=== PATIENT | female | born 1980 | race Caucasian/White ===

== ENCOUNTER 2024-10-13 18:37 | Emergency (ER) | payer MEDICARE, MEDICAID ==
[~2024-10-13] VITALS: Ht 165.1 cm; Wt 55.5 kg
[~2024-10-13 18:37] MED LIST: CLON1TAB12 PO; FLUO-413 PO; FLUO40CA49 PO; HYDR20TA24 PO; LEVO25TA7 PO; LITHTAB PO; SERT-422 PO; THYR60TA PO; THYR90TA12 PO; ZIPR80CA9 PO
[2024-10-13 19:47] LABS: BASOPHILS % 0.3 % (0.0-2.0); EOSINOPHILS % 0.6 % (0.0-5.0); HEMATOCRIT. 30.2 % (36.0-48.0); HEMOGLOBIN. 10.7 g/dL (12.0-16.0); LYMPHOCYTES % 37.2 % (20.0-50.0); MEAN CORPUSCULAR HEMOGLOBIN 31.8 pg (28.0-32.0); MEAN CORPUSCULAR HGB CONC 35.5 g/dL (31.0-37.0); MEAN CORPUSCULAR VOLUME 89.6 fL (81.0-99.0); NEUTROPHILS % 55.9 % (40.0-76.0); PLATELET 286 x1000/uL (130-400); RED BLOOD CELL COUNT 3.37 mill/uL (4.2-5.4); RED CELL DISTRIBUTION WIDTH 13.5 % (11.6-14.6); WHITE BLOOD COUNT 5.1 x1000/uL (4.5-11.0)
[2024-10-13 19:54] LABS: CHLORIDE 93 mEq/L (98-107); POTASSIUM 3.1 mEq/L (3.5-5.1); SODIUM 130 mEq/L (136-145)
[2024-10-13 19:55] LABS: CALCIUM 9.2 mg/dL (8.7-10.4); CARBON DIOXIDE 28 mEq/L (21-32)
[2024-10-13 20:00] LABS: CREATININE 0.8 mg/dL (0.6-1.0); GLUCOSE 89 mg/dL (70-105); UREA NITROGEN BLOOD 7 mg/dL (9-23)
[2024-10-13] MEDS: POTASSIUM CHLORIDE 20MEQ/PACKET PO ONE (21:22)
[2024-10-13] MEDS: SODIUM CHLORIDE 0.9% 1,000 ML IV ONE (21:23)
[2024-10-13 21:28] LABS: CLARITY URINE CLEAR (CLEAR); COLOR URINE YELLOW (YELLOW); GLUCOSE URINE NEGATIVE (NEGATIVE); KETONES URINE NEGATIVE (NEGATIVE); LEUKOCYTE ESTERASE URINE TRACE (NEGATIVE); NITRITE URINE NEGATIVE (NEGATIVE); OCCULT BLOOD URINE NEGATIVE (NEGATIVE); PROTEIN URINE NEGATIVE (NEGATIVE); SPECIFIC GRAVITY URINE 1.002 (1.005-1.030); UROBILINOGEN URINE 0.2 E.U./dL (0.2-1.0)
[2024-10-13 21:53] LABS: BACTERIA URINE TRACE; RBC URINE 0-2 /hpf (0-2); SQUAMOUS EPITHELIAL CELL URINE FEW /lpf (RARE/1+)
[2024-10-13 21:54] LABS: WBC URINE 0-2 /hpf (0-2)
[2024-10-13 22:30] VITALS: BP 144/86; PULSE 77; RESP 18; TEMP 36.8; O2SAT 97
== END 2024-10-13 22:35 | disposition home or self-care (01) ==
LOC: ER 18:37
DX: R00.2 Palpitations (principal); E86.0 Dehydration; E03.9 Hypothyroidism, unspecified; E87.6 Hypokalemia; F31.9 Bipolar disorder, unspecified; I10 Essential (primary) hypertension; Z79.890 Hormone replacement therapy; Z79.899 Other long term (current) drug therapy
CPT/HCPCS: 99285; 96360; 71045; 80048; 81003; 81025; 85025; 36415; 93005; J7030; 96361

== ENCOUNTER 2024-12-19 07:08 | Emergency (ER) | payer MEDICARE, MEDICAID ==
[~2024-12-19] VITALS: Ht 165.1 cm; Wt 56.3 kg
[~2024-12-19 07:08] MED LIST changes: +CALC0.5C7 PO; -FLUO-413 PO; -FLUO40CA49 PO; +GABA-534 PO; -LEVO25TA7 PO; +LEVO88CA2 MT; -LITHTAB PO; +METO-539 PO; -SERT-422 PO; -THYR60TA PO; -THYR90TA12 PO
[2024-12-19 07:17] VITALS: BP 132/87; TEMP 36.7; O2SAT 99
[2024-12-19 07:18] VITALS: PULSE 71; RESP 14; O2SAT 97
== END 2024-12-19 08:09 | disposition home or self-care (01) ==
LOC: ER 07:08
DX: B34.9 Viral infection, unspecified (principal); R53.83 Other fatigue; R68.83 Chills (without fever); Z79.899 Other long term (current) drug therapy; Z98.890 Other specified postprocedural states; Z90.89 Acquired absence of other organs
CPT/HCPCS: 99282

== ENCOUNTER 2025-03-08 18:12 | Emergency (ER) | payer MEDICARE, MEDICAID ==
[~2025-03-08] VITALS: Ht 165.1 cm; Wt 54.0 kg
[2025-03-08 18:26] VITALS: O2SAT 99
[2025-03-08 20:07] LABS: BASOPHILS % 0.3 % (0.0-2.0); EOSINOPHILS % 0.7 % (0.0-5.0); HEMATOCRIT. 34.6 % (36.0-48.0); HEMOGLOBIN. 12.1 g/dL (12.0-16.0); LYMPHOCYTES % 26.5 % (20.0-50.0); MEAN PLATELET VOLUME 6.6 fl (7.4-10.4); MONOCYTES % 5.6 % (2.0-8.0); NEUTROPHILS % 66.9 % (40.0-76.0); PLATELET 294 x1000/uL (130-400); RED BLOOD CELL COUNT 3.82 mill/uL (4.2-5.4); RED CELL DISTRIBUTION WIDTH 11.7 % (11.6-14.6)
[2025-03-08 20:24] LABS: CREATININE 1.1 mg/dL (0.6-1.0)
[2025-03-08 20:25] LABS: UREA NITROGEN BLOOD 7.0 mg/dL (9-23)
[2025-03-08 22:01] VITALS: BP 125/79; PULSE 65; RESP 16; TEMP 36.8; O2SAT 99
== END 2025-03-09 00:41 | disposition home or self-care (01) ==
LOC: ER 18:12
DX: R00.2 Palpitations (principal); Z90.89 Acquired absence of other organs; Z79.890 Hormone replacement therapy; Z79.899 Other long term (current) drug therapy
CPT/HCPCS: 36415; 80048; 85025; 93005; 99284

== ENCOUNTER 2025-03-24 22:05 | Emergency (ER) | payer MEDICARE, MEDICAID ==
[~2025-03-24] VITALS: Ht 165.1 cm; Wt 57.0 kg
[2025-03-24 22:28] VITALS: O2SAT 100
[2025-03-24 22:31] VITALS: BP 164/86; PULSE 88; RESP 18; TEMP 36.7; O2SAT 100
[2025-03-25 00:23] LABS: BASOPHILS % 0.5 % (0.0-2.0); EOSINOPHILS % 2.0 % (0.0-5.0); HEMATOCRIT. 33.3 % (36.0-48.0); HEMOGLOBIN. 11.8 g/dL (12.0-16.0); LYMPHOCYTES % 30.5 % (20.0-50.0); MEAN PLATELET VOLUME 7.2 fl (7.4-10.4); MONOCYTES % 5.7 % (2.0-8.0); NEUTROPHILS % 61.3 % (40.0-76.0); PLATELET 297 x1000/uL (130-400); RED BLOOD CELL COUNT 3.69 mill/uL (4.2-5.4); RED CELL DISTRIBUTION WIDTH 11.5 % (11.6-14.6)
[2025-03-25 00:37] LABS: INR 1.0
[2025-03-25 00:40] LABS: CREATININE 0.9 mg/dL (0.6-1.0); UREA NITROGEN BLOOD 10 mg/dL (9-23)
[2025-03-25 00:41] LABS: TROPONIN I HIGH SENSITIVITY < 4 ng/L (3.0-34)
[2025-03-25 01:20] LABS: *AMPHETAMINES SCREEN URINE PRESUMPTIVE POSITIVE (NEGATIVE); *BENZODIAZEPINES SCREEN URINE NEGATIVE (NEGATIVE)
[2025-03-25 01:21] LABS: *BARBITURATES SCREEN URINE NEGATIVE (NEGATIVE); *COCAINE SCREEN URINE NEGATIVE (NEGATIVE); CANNABINOID URINE SCREEN NEGATIVE (NEGATIVE); ECSTASY MDMA SCREEN URINE NEGATIVE (NEGATIVE); METHADONE URINE SCREEN NEGATIVE (NEGATIVE); OPIATES URINE SCREEN NEGATIVE (NEGATIVE); PHENCYCLIDINE URINE SCREEN NEGATIVE (NEGATIVE)
[2025-03-25 03:06] LABS: TROPONIN I HIGH SENSITIVITY < 4 ng/L (3.0-34)
[2025-04-08] MEDS ORDERED: LEVO100T MT (11:51)
== END 2025-03-25 02:55 | disposition left against medical advice (07) ==
LOC: ER 22:05
DX: R07.89 Other chest pain (principal); I10 Essential (primary) hypertension; F15.90 Other stimulant use, unspecified, uncomplicated; F10.90 Alcohol use, unspecified, uncomplicated; R06.02 Shortness of breath; F41.9 Anxiety disorder, unspecified; R53.82 Chronic fatigue, unspecified; Z79.890 Hormone replacement therapy; Z79.899 Other long term (current) drug therapy; Y90.9 Presence of alcohol in blood, level not specified
CPT/HCPCS: 36415; 71045; 80048; 80305; 81025; 83880; 84484; 85025; 93005; 99284; 99285

== ENCOUNTER 2025-03-28 12:41 | Emergency (ER) | payer MEDICARE, MEDICAID ==
[~2025-03-28] VITALS: Ht 165.1 cm; Wt 60.0 kg
[2025-03-28 12:48] VITALS: O2SAT 100
[2025-03-28 14:06] LABS: BASOPHILS % 0.4 % (0.0-2.0); EOSINOPHILS % 1.4 % (0.0-5.0); HEMATOCRIT. 36.1 % (36.0-48.0); HEMOGLOBIN. 12.3 g/dL (12.0-16.0); LYMPHOCYTES % 29.4 % (20.0-50.0); MEAN PLATELET VOLUME 7.0 fl (7.4-10.4); MONOCYTES % 7.0 % (2.0-8.0); NEUTROPHILS % 61.8 % (40.0-76.0); PLATELET 331 x1000/uL (130-400); RED BLOOD CELL COUNT 3.90 mill/uL (4.2-5.4); RED CELL DISTRIBUTION WIDTH 11.7 % (11.6-14.6)
[2025-03-28 14:22] LABS: CREATININE 1.1 mg/dL (0.6-1.0); UREA NITROGEN BLOOD 10.0 mg/dL (9-23)
[2025-03-28 14:23] LABS: TROPONIN I HIGH SENSITIVITY < 4 ng/L (3.0-34)
[2025-03-28 14:25] LABS: ASPARTATE AMINOTRANSFERASE 18 IU/L (<34); BILIRUBIN DIRECT < 0.1 mg/dL (<=3.0); BILIRUBIN TOTAL 0.3 mg/dL (0.1-1.0); PROTEIN TOTAL 6.7 g/dL (6.0-8.3)
[2025-03-28 14:28] LABS: HCG SCREEN NEGATIVE
[2025-03-28 15:24] VITALS: BP 117/79; PULSE 66; RESP 16; TEMP 36.7; O2SAT 99
[2025-04-08] MEDS ORDERED: LEVO100T MT (11:51)
[2025-04-15] MEDS ORDERED: IMIT25 PO (11:54)
[2025-04-15] MEDS ORDERED: LEVO100T9 PO (11:54)
[2025-04-15] MEDS ORDERED: CALC0.253 PO (11:54)
[2025-04-15] MEDS ORDERED: GABA-534 PO (11:54)
[2025-04-15] MEDS ORDERED: ZIPR40CA43 PO (11:54)
[2025-04-15] MEDS ORDERED: DIPH25CA83 PO (11:54)
[2025-04-15] MEDS ORDERED: AMLO5TAB88 PO (11:54)
[2025-04-15] MEDS ORDERED: ZOLP5TAB2 PO (11:54)
[2025-04-15] MEDS ORDERED: CLON1TAB12 PO (11:54)
[2025-04-15] MEDS ORDERED: METO25TA6 PO (11:54)
== END 2025-03-28 15:26 | disposition home or self-care (01) ==
LOC: ER 12:41
DX: R07.89 Other chest pain (principal); F15.90 Other stimulant use, unspecified, uncomplicated; Z79.899 Other long term (current) drug therapy
CPT/HCPCS: 36415; 71045; 80048; 80076; 84484; 84703; 85025; 93005; 99285

== ENCOUNTER 2025-04-15 14:25 | Inpatient (IN) | payer MEDICARE, MEDICAID ==
[~2025-04-15] VITALS: Ht 165.1 cm; Wt 55.8 kg
[~2025-04-15 14:25] MED LIST changes: +AMLO5TAB88 PO; +CALC0.253 PO; +DIPH25CA83 PO; +IMIT25 PO; +LEVO100T MT; +LEVO100T9 PO; -LEVO88CA2 MT; +METO25TA6 PO; +ZIPR40CA43 PO; +ZOLP5TAB2 PO
[2025-04-15] MEDS ORDERED: NITROGLYCERIN 0.4MG TABLET SL SL PRN (16:00)
[2025-04-15] MEDS ORDERED: IPRATROPIUM/ALBUTEROL 0.5-3(2.5)MG/3ML NEB HHN PRN (16:00)
[2025-04-15] MEDS ORDERED: CLONIDINE 0.1MG TABLET PO PRN (16:00)
[2025-04-15] MEDS ORDERED: NALOXONE HCL 0.4MG/ML 1ML VIAL IV PRN (16:00)
[2025-04-15] MEDS ORDERED: ONDANSETRON HCL 4MG/2ML INJ IV PRN (16:00)
[2025-04-15 16:26] VITALS: BP 120/57; PULSE 71; RESP 16; TEMP 38.0304
[2025-04-15] MEDS: DIPHENHYDRAMINE 50MG CAPSULE PO PRN (17:15)
[2025-04-15] MEDS: ASPIRIN/ACETAMINOPHEN/CAFFEINE 250/250/65MG TABLET PO PRN (17:15)
[2025-04-15] MEDS: GABAPENTIN 400MG CAPSULE PO SCH (17:15)
[2025-04-15] MEDS: ZIPRASIDONE HCL 40MG CAPSULE PO SCH (18:08)
[2025-04-15] MEDS: HYDROCODONE/ACETAMINOPHEN 7.5/325MG TABLET PO PRN (18:22)
[2025-04-15 18:52] VITALS: BP 120/57; PULSE 71; RESP 18; TEMP 38; O2SAT 100
[2025-04-15] MEDS: CLONAZEPAM 1MG TABLET PO PRN (19:04)
[2025-04-15] MEDS: LACTULOSE 20G/30ML UDC PO PRN (19:04)
[2025-04-15] MEDS: METOPROLOL TARTRATE 25MG TABLET PO SCH (20:34)
[2025-04-15] MEDS: CALCITRIOL 0.25MCG CAPSULE PO SCH (20:34)
[2025-04-15] MEDS: ZOLPIDEM TARTRATE 5MG TABLET PO PRN (20:35)
[2025-04-15] MEDS ORDERED: ZIPRASIDONE HCL 40MG CAPSULE PO SCH (21:00)
[2025-04-16] MEDS: PANTOPRAZOLE 40MG DR TABLET PO SCH (07:25)
[2025-04-16] MEDS: LEVOTHYROXINE SODIUM 100MCG TABLET PO SCH (07:26)
[2025-04-16 08:00] VITALS: BP 157/86; PULSE 67; RESP 16; TEMP 37.4; O2SAT 100
[2025-04-16] MEDS: AMLODIPINE 5MG TABLET PO ONE (08:46)
[2025-04-16 09:22] LABS: BASOPHILS % 0.5 % (0.0-2.0); EOSINOPHILS % 3.0 % (0.0-5.0); HEMATOCRIT. 32.1 % (36.0-48.0); HEMOGLOBIN. 11.2 g/dL (12.0-16.0); LYMPHOCYTES % 40.2 % (20.0-50.0); MEAN PLATELET VOLUME 7.4 fl (7.4-10.4); MONOCYTES % 6.6 % (2.0-8.0); NEUTROPHILS % 49.7 % (40.0-76.0); PLATELET 283 x1000/uL (130-400); RED BLOOD CELL COUNT 3.52 mill/uL (4.2-5.4); RED CELL DISTRIBUTION WIDTH 11.0 % (11.6-14.6)
[2025-04-16 09:29] LABS: CREATININE 1.3 mg/dL (0.6-1.0); UREA NITROGEN BLOOD 12 mg/dL (9-23)
[2025-04-16 09:30] LABS: ASPARTATE AMINOTRANSFERASE 14 IU/L (<34)
[2025-04-16 09:31] LABS: BILIRUBIN TOTAL 0.3 mg/dL (0.1-1.0); PROTEIN TOTAL 6.2 g/dL (6.0-8.3)
[2025-04-16] MEDS: MAGNESIUM HYDROXIDE 400MG/5ML 30ML UDC PO PRN (11:26)
[2025-04-16] MEDS: ONDANSETRON HCL 4MG TABLET PO PRN (11:29)
[2025-04-16] MEDS: ACETAMINOPHEN 650MG/20.3ML UDC PO PRN (14:33)
[2025-04-16 19:00] LABS: CLARITY URINE CLEAR (CLEAR); COLOR URINE YELLOW (YELLOW); GLUCOSE URINE NEGATIVE (NEGATIVE); KETONES URINE NEGATIVE (NEGATIVE); LEUKOCYTE ESTERASE URINE NEGATIVE (NEGATIVE); NITRITE URINE NEGATIVE (NEGATIVE); OCCULT BLOOD URINE NEGATIVE (NEGATIVE); PH URINE 7.5 (4.5-8.0); PROTEIN URINE NEGATIVE (NEGATIVE); SPECIFIC GRAVITY URINE 1.004 (1.005-1.030); UROBILINOGEN URINE 0.2 E.U./dL (0.2-1.0)
[2025-04-16 20:42] VITALS: BP 147/95; PULSE 69; RESP 17; TEMP 36.4; O2SAT 98
[2025-04-17 07:53] LABS: BASOPHILS % 0.6 % (0.0-2.0); EOSINOPHILS % 3.9 % (0.0-5.0); HEMATOCRIT. 33.6 % (36.0-48.0); HEMOGLOBIN. 11.6 g/dL (12.0-16.0); LYMPHOCYTES % 43.9 % (20.0-50.0); MEAN PLATELET VOLUME 7.2 fl (7.4-10.4); MONOCYTES % 8.8 % (2.0-8.0); NEUTROPHILS % 42.8 % (40.0-76.0); PLATELET 310 x1000/uL (130-400); RED BLOOD CELL COUNT 3.75 mill/uL (4.2-5.4); RED CELL DISTRIBUTION WIDTH 11.3 % (11.6-14.6)
[2025-04-17 08:00] VITALS: BP 141/90; PULSE 68; RESP 17; TEMP 36.4; O2SAT 98
[2025-04-17 08:12] LABS: CREATININE 1.3 mg/dL (0.6-1.0); PROTEIN TOTAL 6.2 g/dL (6.0-8.3); UREA NITROGEN BLOOD 13 mg/dL (9-23)
[2025-04-17 08:14] LABS: ASPARTATE AMINOTRANSFERASE 17 IU/L (<34); BILIRUBIN TOTAL 0.3 mg/dL (0.1-1.0)
[2025-04-17 08:17] LABS: FOLIC ACID (FOLATE) SERUM 19.90 ng/mL (>5.38); VITAMIN B12 SERUM 871 pg/mL (211-911)
[2025-04-17] MEDS: CLONAZEPAM 1MG TABLET PO SCH (11:05)
[2025-04-17] MEDS: LACTULOSE 20G/30ML UDC PO SCH (15:00)
[2025-04-17] MEDS: BISACODYL 10MG SUPP PR SCH (15:00)
[2025-04-17 20:00] VITALS: BP 131/72; PULSE 62; RESP 18; TEMP 36.7; O2SAT 98
[2025-04-18 08:00] VITALS: PULSE 65; RESP 18; TEMP 36.5; O2SAT 99
[2025-04-18 20:00] VITALS: BP 140/78; PULSE 64; RESP 18; TEMP 36.5; O2SAT 100
[2025-04-19 08:00] VITALS: BP 146/76; PULSE 69; RESP 20; TEMP 37; O2SAT 98
[2025-04-19 17:34] LABS: T4 FREE 1.12 ng/dL (0.89-1.76)
[2025-04-19 20:00] VITALS: BP 120/71; PULSE 71; RESP 18; TEMP 36.3; O2SAT 96
[2025-04-20 08:00] VITALS: BP 119/68; PULSE 67; RESP 18; TEMP 36.4; O2SAT 99
[2025-04-20 08:21] LABS: BASOPHILS % 0.7 % (0.0-2.0); EOSINOPHILS % 5.1 % (0.0-5.0); HEMATOCRIT. 32.0 % (36.0-48.0); HEMOGLOBIN. 11.0 g/dL (12.0-16.0); LYMPHOCYTES % 41.0 % (20.0-50.0); MEAN PLATELET VOLUME 7.1 fl (7.4-10.4); MONOCYTES % 7.1 % (2.0-8.0); NEUTROPHILS % 46.1 % (40.0-76.0); PLATELET 291 x1000/uL (130-400); RED BLOOD CELL COUNT 3.55 mill/uL (4.2-5.4); RED CELL DISTRIBUTION WIDTH 11.5 % (11.6-14.6)
[2025-04-20 08:54] LABS: CREATININE 1.3 mg/dL (0.6-1.0); UREA NITROGEN BLOOD 16 mg/dL (9-23)
[2025-04-20 08:56] LABS: PHOSPHORUS 2.9 mg/dL (2.5-4.9)
[2025-04-20] MEDS: HYDROXYZINE 25MG TABLET PO PRN (12:35)
[2025-04-20] MEDS: MAGNESIUM 2 G PREMIX 50 ML IV NR (15:18)
[2025-04-20] MEDS: LACTULOSE 20G/30ML UDC PO SCH (18:06)
[2025-04-20 20:00] VITALS: BP 135/83; PULSE 73; RESP 18; TEMP 36.3; O2SAT 98
[2025-04-20] MEDS: ZOLPIDEM TARTRATE 5MG TABLET PO PRN (21:37)
[2025-04-21 08:00] VITALS: BP 116/70; PULSE 73; RESP 17; TEMP 38; O2SAT 100
[2025-04-21] MEDS: COSYNTROPIN 0.25MG/ML VIAL IV SCH (10:46)
[2025-04-21 12:14] LABS: CALCIUM URINE (RAW) 19.6 mg/dL; CALCIUM URINE 24 HR 803.6 mg/24hr (<250)
[2025-04-21 12:19] LABS: CREATININE URINE (RAW) 24.4 mg/dl
[2025-04-21 13:07] LABS: ACTH PLASMA 5 pg/mL (7.2-63.3)
[2025-04-21 14:57] LABS: CLEARANCE CALCULATION 63.0 mL/min (60-100)
[2025-04-21 20:00] VITALS: BP 134/70; PULSE 68; RESP 18; TEMP 36.4; O2SAT 98
[2025-04-21] MEDS: ZOLPIDEM TARTRATE 5MG TABLET PO PRN (21:11)
[2025-04-21] MEDS: CALCITRIOL 0.25MCG CAPSULE PO SCH (21:16)
[2025-04-21] MEDS: DOCUSATE SODIUM 100MG CAPSULE PO PRN (22:49)
[2025-04-22] MEDS: SUMATRIPTAN SUCCINATE 25MG TABLET PO PRN (18:40)
[2025-04-22 20:00] VITALS: BP 132/66; PULSE 66; RESP 20; TEMP 36.9; O2SAT 97
[2025-04-22] MEDS: POLYETHYLENE GLYCOL 3350 (17GM) 1 DOSE PACK PO SCH (20:54)
[2025-04-22] MEDS: ZOLPIDEM TARTRATE 5MG TABLET PO PRN (21:01)
[2025-04-23 06:51] LABS: BASOPHILS % 0.4 % (0.0-2.0); EOSINOPHILS % 5.0 % (0.0-5.0); HEMATOCRIT. 31.8 % (36.0-48.0); HEMOGLOBIN. 11.1 g/dL (12.0-16.0); LYMPHOCYTES % 36.6 % (20.0-50.0); MEAN PLATELET VOLUME 7.1 fl (7.4-10.4); MONOCYTES % 7.5 % (2.0-8.0); NEUTROPHILS % 50.5 % (40.0-76.0); PLATELET 281 x1000/uL (130-400); RED BLOOD CELL COUNT 3.52 mill/uL (4.2-5.4); RED CELL DISTRIBUTION WIDTH 11.4 % (11.6-14.6)
[2025-04-23 07:31] LABS: CREATININE 1.4 mg/dL (0.6-1.0); UREA NITROGEN BLOOD 23 mg/dL (9-23)
[2025-04-23 07:33] LABS: PHOSPHORUS 3.8 mg/dL (2.5-4.9)
[2025-04-23] MEDS ORDERED: NALOXONE HCL 0.4MG/ML VIAL IV PRN (07:45)
[2025-04-23 08:00] VITALS: BP 127/75; PULSE 59; RESP 17; TEMP 36.5; O2SAT 98
[2025-04-23] MEDS: MAGNESIUM OXIDE 400MG TABLET PO SCH (08:33)
[2025-04-23 20:00] VITALS: BP 132/77; PULSE 66; RESP 18; TEMP 36.7; O2SAT 98
[2025-04-24 07:24] LABS: CREATININE 1.2 mg/dL (0.6-1.0)
[2025-04-24 07:25] LABS: UREA NITROGEN BLOOD 18 mg/dL (9-23)
[2025-04-24 07:26] LABS: BASOPHILS % 0.4 % (0.0-2.0); EOSINOPHILS % 4.0 % (0.0-5.0); HEMATOCRIT. 30.6 % (36.0-48.0); HEMOGLOBIN. 10.5 g/dL (12.0-16.0); LYMPHOCYTES % 36.9 % (20.0-50.0); MEAN PLATELET VOLUME 7.5 fl (7.4-10.4); MONOCYTES % 7.3 % (2.0-8.0); NEUTROPHILS % 51.4 % (40.0-76.0); PLATELET 290 x1000/uL (130-400); RED BLOOD CELL COUNT 3.35 mill/uL (4.2-5.4); RED CELL DISTRIBUTION WIDTH 11.4 % (11.6-14.6)
[2025-04-24 07:27] LABS: PHOSPHORUS 3.7 mg/dL (2.5-4.9)
[2025-04-24 08:00] VITALS: BP 144/78; PULSE 68; RESP 20; TEMP 36.8; O2SAT 98
[2025-04-24] MEDS: PSYLLIUM SEED PACKET PO SCH (13:03)
[2025-04-24 20:00] VITALS: BP 103/73; PULSE 66; RESP 20; TEMP 36.6; O2SAT 100
[2025-04-25] MEDS: HYDROCODONE/ACETAMINOPHEN 7.5/325MG TABLET PO PRN (06:29)
[2025-04-25 08:00] VITALS: BP 146/74; PULSE 66; RESP 18; TEMP 36.6; O2SAT 100
[2025-04-25] MEDS: LACTULOSE 20G/30ML UDC PO SCH (16:06)
[2025-04-25 20:00] VITALS: BP 127/70; PULSE 64; RESP 20; TEMP 36.6; O2SAT 98
[2025-04-26 08:00] VITALS: BP 142/77; PULSE 66; RESP 18; TEMP 36.7; O2SAT 99
[2025-04-26] MEDS: NA PHOS,M-B/NA PHOS,DI-BA ENEMA 118ML PR ONE (09:48)
[2025-04-26 12:06] VITALS: BP 112/59; PULSE 73; RESP 16; TEMP 98.1
[2025-04-26] MEDS: SORBITOL 70% SOLN 30ML PO NR (12:52)
[2025-04-27 10:09] LABS: FOLICLE STIMULATING HORMONE 2.4 mIU/mL (.); LUTEINIZING HORMONE 2.3 mIU/mL (.)
== END 2025-04-26 16:50 | disposition home health service (06) | DRG 280 ==
PROVIDERS: ADMIT Physical Medicine & Rehabilitation Spinal Cord Injury Medicine; ATTEND Student in an Organized Health Care Education/Training Program
DX: I21.4 Non-ST elevation (NSTEMI) myocardial infarction (principal); N17.0 Acute kidney failure with tubular necrosis; R53.2 Functional quadriplegia; E89.0 Postprocedural hypothyroidism; D64.9 Anemia, unspecified; E05.00 Thyrotoxicosis with diffuse goiter without thyrotoxic crisis or storm; F31.9 Bipolar disorder, unspecified; I12.9 Hypertensive chronic kidney disease with stage 1 through stage 4 chronic kidney disease, or unspecified chronic kidney disease; N18.9 Chronic kidney disease, unspecified; G44.209 Tension-type headache, unspecified, not intractable; F90.9 Attention-deficit hyperactivity disorder, unspecified type; G43.909 Migraine, unspecified, not intractable, without status migrainosus; E20.9 Hypoparathyroidism, unspecified; R73.03 Prediabetes; F41.1 Generalized anxiety disorder; G93.32 Myalgic encephalomyelitis/chronic fatigue syndrome; K59.00 Constipation, unspecified; I25.10 Atherosclerotic heart disease of native coronary artery without angina pectoris; G47.00 Insomnia, unspecified; R53.81 Other malaise; R26.9 Unspecified abnormalities of gait and mobility; R73.9 Hyperglycemia, unspecified; E78.00 Pure hypercholesterolemia, unspecified; Z91.51 Personal history of suicidal behavior; Z91.81 History of falling; Z82.49 Family history of ischemic heart disease and other diseases of the circulatory system
CPT/HCPCS: 36415; 74018; 80048; 80053; 81003; 82024; 82040; 82088; 82306; 82330; 82340; 82533; 82550; 82575; 82607; 82728; 82746; 83001; 83002; 83036; 83520; 83540; 83550; 83735; 84100; 84134; 84244; 84439; 84443; 84481; 85025; 86038; 86376; 87077; 97110; 97112; 97116; 97162; 97166; 97530; 97535; J0834; J3475; Q0162; Q0163

== ENCOUNTER 2025-04-28 17:29 | Emergency (ER) | payer MEDICARE, MEDICAID ==
[~2025-04-28] VITALS: Ht 167.6 cm; Wt 60.0 kg
[~2025-04-28 17:29] MED LIST changes: -HYDR20TA24 PO; -ZIPR80CA9 PO
[2025-04-28 17:40] VITALS: BP 120/80; RESP 18; TEMP 36.7; O2SAT 98
[2025-04-28 17:43] VITALS: PULSE 100; O2SAT 100
[2025-04-28 18:52] LABS: BASOPHILS % 0.4 % (0.0-2.0); EOSINOPHILS % 3.5 % (0.0-5.0); HEMATOCRIT. 29.5 % (36.0-48.0); HEMOGLOBIN. 10.0 g/dL (12.0-16.0); LYMPHOCYTES % 33.9 % (20.0-50.0); MEAN PLATELET VOLUME 7.1 fl (7.4-10.4); MONOCYTES % 5.7 % (2.0-8.0); NEUTROPHILS % 56.5 % (40.0-76.0); PLATELET 259 x1000/uL (130-400); RED BLOOD CELL COUNT 3.18 mill/uL (4.2-5.4); RED CELL DISTRIBUTION WIDTH 11.6 % (11.6-14.6)
[2025-04-28 19:08] LABS: CREATININE 1.1 mg/dL (0.6-1.0); UREA NITROGEN BLOOD 14.0 mg/dL (9-23)
[2025-04-28 19:09] LABS: TROPONIN I HIGH SENSITIVITY < 4 ng/L (3.0-34)
[2025-04-28 19:30] LABS: CLARITY URINE CLEAR (CLEAR); COLOR URINE YELLOW (YELLOW); GLUCOSE URINE NEGATIVE (NEGATIVE); KETONES URINE NEGATIVE (NEGATIVE); LEUKOCYTE ESTERASE URINE NEGATIVE (NEGATIVE); NITRITE URINE NEGATIVE (NEGATIVE); OCCULT BLOOD URINE TRACE (NEGATIVE); PH URINE 6.0 (4.5-8.0); PROTEIN URINE NEGATIVE (NEGATIVE); SPECIFIC GRAVITY URINE 1.013 (1.005-1.030); UROBILINOGEN URINE 0.2 E.U./dL (0.2-1.0)
== END 2025-04-28 20:47 | disposition home or self-care (01) ==
LOC: ER 17:29
DX: R53.1 Weakness (principal); I25.2 Old myocardial infarction; E03.9 Hypothyroidism, unspecified; N17.9 Acute kidney failure, unspecified; N18.9 Chronic kidney disease, unspecified; Z79.890 Hormone replacement therapy; Z79.899 Other long term (current) drug therapy; Z90.89 Acquired absence of other organs
CPT/HCPCS: 36415; 71045; 80048; 81003; 84484; 85025; 93005; 99285

== ENCOUNTER 2025-05-21 18:13 | Inpatient (IN) | payer MEDICARE, MEDICAID ==
[~2025-05-21] VITALS: Ht 165.1 cm; Wt 59.2 kg
[2025-05-21 18:29] VITALS: O2SAT 100
[2025-05-21] MEDS: METOCLOPRAMIDE HCL 10MG/2ML VIAL IV ONE (19:00)
[2025-05-21] MEDS: METOPROLOL TARTRATE 25MG TABLET PO ONE (19:00)
[2025-05-21 20:43] LABS: BASOPHILS % 0.3 % (0.0-2.0); EOSINOPHILS % 1.8 % (0.0-5.0); HEMATOCRIT. 33.2 % (36.0-48.0); HEMOGLOBIN. 11.1 g/dL (12.0-16.0); LYMPHOCYTES % 38.5 % (20.0-50.0); MEAN PLATELET VOLUME 7.7 fl (7.4-10.4); MONOCYTES % 6.8 % (2.0-8.0); NEUTROPHILS % 52.6 % (40.0-76.0); PLATELET 241 x1000/uL (130-400); RED BLOOD CELL COUNT 3.60 mill/uL (4.2-5.4); RED CELL DISTRIBUTION WIDTH 12.5 % (11.6-14.6)
[2025-05-21 20:43] LABS: *AMPHETAMINES SCREEN URINE NEGATIVE (NEGATIVE); *BARBITURATES SCREEN URINE NEGATIVE (NEGATIVE); *BENZODIAZEPINES SCREEN URINE NEGATIVE (NEGATIVE); *COCAINE SCREEN URINE NEGATIVE (NEGATIVE); METHADONE URINE SCREEN NEGATIVE (NEGATIVE); OPIATES URINE SCREEN NEGATIVE (NEGATIVE)
[2025-05-21 20:44] LABS: CANNABINOID URINE SCREEN NEGATIVE (NEGATIVE); ECSTASY MDMA SCREEN URINE NEGATIVE (NEGATIVE); PHENCYCLIDINE URINE SCREEN NEGATIVE (NEGATIVE)
[2025-05-21] MEDS: METOCLOPRAMIDE HCL 10MG/2ML VIAL IV SCH (20:48)
[2025-05-21] MEDS: METOPROLOL TARTRATE 25MG TABLET PO SCH (20:50)
[2025-05-21] MEDS: SODIUM CHLORIDE 0.9% 1,000 ML IV ONE (20:51)
[2025-05-21] MEDS: LORAZEPAM 2MG/ML UD SYRINGE IV SCH (20:55)
[2025-05-21 21:00] LABS: CREATININE 0.9 mg/dL (0.6-1.0)
[2025-05-21 21:01] LABS: PROTEIN TOTAL 6.8 g/dL (6.0-8.3); UREA NITROGEN BLOOD 13 mg/dL (9-23)
[2025-05-21 21:02] LABS: ASPARTATE AMINOTRANSFERASE 21 IU/L (<34); TROPONIN I HIGH SENSITIVITY < 4 ng/L (3.0-34)
[2025-05-21 21:03] LABS: BILIRUBIN DIRECT < 0.1 mg/dL (<=3.0); BILIRUBIN TOTAL 0.2 mg/dL (0.1-1.0)
[2025-05-21 21:10] LABS: CLARITY URINE CLEAR (CLEAR); COLOR URINE YELLOW (YELLOW); GLUCOSE URINE NEGATIVE (NEGATIVE); KETONES URINE NEGATIVE (NEGATIVE); LEUKOCYTE ESTERASE URINE NEGATIVE (NEGATIVE); NITRITE URINE NEGATIVE (NEGATIVE); OCCULT BLOOD URINE NEGATIVE (NEGATIVE); PH URINE 7.0 (4.5-8.0); PROTEIN URINE NEGATIVE (NEGATIVE); SPECIFIC GRAVITY URINE 1.005 (1.005-1.030); UROBILINOGEN URINE 0.2 E.U./dL (0.2-1.0)
[2025-05-21] MEDS: HYDROCODONE/ACETAMINOPHEN 5/325MG TABLET PO ONE (21:54)
[2025-05-21] MEDS ORDERED: ACETAMINOPHEN 325MG TABLET PO PRN ×2 (23:00)
[2025-05-21] MEDS ORDERED: IPRATROPIUM/ALBUTEROL 0.5-3(2.5)MG/3ML NEB HHN PRN (23:00)
[2025-05-21 23:19] LABS: HCG SCREEN NEGATIVE
[2025-05-21 23:27] LABS: PHOSPHORUS 4.0 mg/dL (2.5-4.9)
[2025-05-22] VITALS (7 sets, daily range): BP systolic 110–139; BP diastolic 72–94; PULSE 58–98; RESP 14–16; TEMP 36.7–37.4; O2SAT 91–99
[2025-05-22] MEDS ORDERED: LEVO100T PO (00:26)
[2025-05-22] MEDS ORDERED: ZOLP5TAB2 MT (00:26)
[2025-05-22] MEDS ORDERED: ZIPR20CA12 PO (00:26)
[2025-05-22] MEDS ORDERED: CLON1TAB12 PO (00:26)
[2025-05-22] MEDS ORDERED: GABA-534 PO (00:26)
[2025-05-22] MEDS ORDERED: METO25TA6 PO (00:26)
[2025-05-22] MEDS: ONDANSETRON HCL 4MG/2ML INJ IV PRN (01:00)
[2025-05-22] MEDS: CLONAZEPAM 1MG TABLET PO NR ×2 (02:35→14:54)
[2025-05-22] MEDS: ZOLPIDEM TARTRATE 5MG TABLET PO PRN (02:36)
[2025-05-22] MEDS: KETOROLAC 15MG/ML VIAL IV PRN (03:13)
[2025-05-22 04:51] LABS: CLARITY URINE CLEAR (CLEAR); COLOR URINE YELLOW (YELLOW); GLUCOSE URINE NEGATIVE (NEGATIVE); KETONES URINE NEGATIVE (NEGATIVE); LEUKOCYTE ESTERASE URINE NEGATIVE (NEGATIVE); NITRITE URINE NEGATIVE (NEGATIVE); OCCULT BLOOD URINE NEGATIVE (NEGATIVE); PH URINE 7.0 (4.5-8.0); PROTEIN URINE NEGATIVE (NEGATIVE); SPECIFIC GRAVITY URINE 1.007 (1.005-1.030); UROBILINOGEN URINE 0.2 E.U./dL (0.2-1.0)
[2025-05-22 05:06] LABS: *AMPHETAMINES SCREEN URINE NEGATIVE (NEGATIVE); *BARBITURATES SCREEN URINE NEGATIVE (NEGATIVE); *BENZODIAZEPINES SCREEN URINE NEGATIVE (NEGATIVE); *COCAINE SCREEN URINE NEGATIVE (NEGATIVE); METHADONE URINE SCREEN NEGATIVE (NEGATIVE); OPIATES URINE SCREEN PRESUMPTIVE POSITIVE (NEGATIVE); PHENCYCLIDINE URINE SCREEN NEGATIVE (NEGATIVE)
[2025-05-22 05:07] LABS: CANNABINOID URINE SCREEN NEGATIVE (NEGATIVE); ECSTASY MDMA SCREEN URINE NEGATIVE (NEGATIVE)
[2025-05-22] MEDS: LEVOTHYROXINE SODIUM 100MCG TABLET PO SCH (06:14)
[2025-05-22 06:47] LABS: CREATININE 1.0 mg/dL (0.6-1.0)
[2025-05-22 06:48] LABS: LDL CHOLESTEROL 101.0 mg/dL (5-100); TRIGLYCERIDE 64.0 mg/dL (0-150); UREA NITROGEN BLOOD 12.0 mg/dL (9-23)
[2025-05-22 06:51] LABS: TROPONIN I HIGH SENSITIVITY < 4 ng/L (3.0-34)
[2025-05-22 06:55] LABS: T4 FREE 1.29 ng/dL (0.89-1.76)
[2025-05-22 07:04] LABS: BASOPHILS % 0.3 % (0.0-2.0); EOSINOPHILS % 2.1 % (0.0-5.0); HEMATOCRIT. 31.4 % (36.0-48.0); HEMOGLOBIN. 10.9 g/dL (12.0-16.0); LYMPHOCYTES % 45.9 % (20.0-50.0); MEAN PLATELET VOLUME 8.0 fl (7.4-10.4); MONOCYTES % 7.6 % (2.0-8.0); NEUTROPHILS % 44.1 % (40.0-76.0); PLATELET 242 x1000/uL (130-400); RED BLOOD CELL COUNT 3.44 mill/uL (4.2-5.4); RED CELL DISTRIBUTION WIDTH 11.9 % (11.6-14.6)
[2025-05-22] MEDS ORDERED: CLONAZEPAM 0.5MG TABLET PO ONE (08:45)
[2025-05-22] MEDS: POTASSIUM CHLORIDE 20MEQ TABLET SR PO SCH (10:04)
[2025-05-22] MEDS: METOPROLOL TARTRATE 25MG TABLET PO SCH ×2 (10:05→21:48)
[2025-05-22] MEDS: PANTOPRAZOLE SODIUM 40 MG/VIAL IV SCH (10:05)
[2025-05-22] MEDS: CLONAZEPAM 0.5MG TABLET PO SCH (11:45)
[2025-05-22] MEDS: HYDRALAZINE 20MG/ML VIAL IV PRN (14:53)
[2025-05-22] MEDS: GABAPENTIN 400MG CAPSULE PO SCH (15:49)
[2025-05-22] MEDS: DICLOFENAC SODIUM 75MG DR TABLET PO PRN (15:59)
[2025-05-22] MEDS: ZIPRASIDONE HCL 20MG CAPSULE PO SCH (18:24)
[2025-05-22] MEDS: ASPIRIN/ACETAMINOPHEN/CAFFEINE 250/250/65MG TABLET PO PRN (21:49)
[2025-05-22] MEDS ORDERED: GABAPENTIN 400MG CAPSULE PO SCH (22:00)
[2025-05-23] VITALS: BP 95/68; PULSE 76; RESP 10; TEMP 37.6; O2SAT 99
[2025-05-23 04:00] VITALS: BP 102/58; PULSE 78; RESP 9; TEMP 36.3; O2SAT 97
[2025-05-23] MEDS: CLONAZEPAM 1MG TABLET PO PRN (05:27)
[2025-05-23 08:00] VITALS: BP 122/73; PULSE 72; RESP 16; TEMP 36.7; O2SAT 99
[2025-05-23 12:00] VITALS: BP 119/62; PULSE 61; RESP 16; TEMP 36.5; O2SAT 99
[2025-05-23] MEDS ORDERED: DICL75TA5 PO (12:07)
[2025-05-23 14:37] VITALS: BP 119/76; PULSE 67; RESP 17; TEMP 97.7
[2025-05-23] MEDS ORDERED: HYDRALAZINE 10 MG in SODIUM CHLORIDE 0.9% 49.5 ML IV PRN (16:00)
== END 2025-05-23 15:55 | disposition home or self-care (01) | DRG 102 ==
LOC: ER 18:13 → ENRESERV 23:27 → 3WST 23:43 → EDBEDREQTM 23:47 → EDBEDREQ 23:47 → 4WST 05-23 11:01
PROVIDERS: ADMIT Internal Medicine; ATTEND Internal Medicine
PROC: GZ56ZZZ Individual Psychotherapy, Supportive (ICD-10-PCS; principal; 2025-05-22)
DX: G43.909 Migraine, unspecified, not intractable, without status migrainosus (principal); R53.2 Functional quadriplegia; D64.9 Anemia, unspecified; E89.0 Postprocedural hypothyroidism; F32.A Depression, unspecified; I10 Essential (primary) hypertension; G93.32 Myalgic encephalomyelitis/chronic fatigue syndrome; F41.1 Generalized anxiety disorder; F90.9 Attention-deficit hyperactivity disorder, unspecified type; I25.10 Atherosclerotic heart disease of native coronary artery without angina pectoris; I25.2 Old myocardial infarction; Z76.5 Malingerer [conscious simulation]; Z88.8 Allergy status to other drugs, medicaments and biological substances; Z79.899 Other long term (current) drug therapy
CPT/HCPCS: 36415; 71045; 80048; 80061; 80076; 80305; 81003; 82728; 83540; 83550; 83735; 83880; 84100; 84439; 84443; 84484; 84703; 85025; 93005; 99285; A4606; J0360; J1885; J2060; J2405; J2470; J2765; J7030